=== PATIENT | male | born 1960 | race American Indian/Alaskan Native ===

== ENCOUNTER 2017-07-07 08:40 | Emergency (ER) | payer OTHER ==
[2017-07-07 08:58] VITALS: BP 140/85
[2017-07-07] MEDS ORDERED: TRIPLE ANTIBIOTIC TP ONE (09:17)
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
[2017-07-07] MEDS ORDERED: TORADOL IM ONE (09:23)
== END 2017-07-07 09:52 | disposition home or self-care (01) ==
LOC: ED 08:40
DX: S16.1XXA Strain of muscle, fascia and tendon at neck level, initial encounter (principal); S39.012A Strain of muscle, fascia and tendon of lower back, initial encounter; S60.512A Abrasion of left hand, initial encounter; V49.49XA Driver injured in collision with other motor vehicles in traffic accident, initial encounter; Y93.9 Activity, unspecified; Y92.9 Unspecified place or not applicable; Y99.9 Unspecified external cause status
CPT/HCPCS: 96372; 99282; J1885; A6250

== ENCOUNTER 2017-07-07 14:30 | Emergency (ER) | payer OTHER ==
[2017-07-07 15:27] LABS: Basophils % (Auto) 0.2 % (0.0-1.8); Eosinophils % (Auto) 0.2 % (0.0-4.3); Hematocrit 44.3 % (35.5-45.6); Hemoglobin 14.9 gm/dl (11.8-15.2); Mean Corpuscular HGB Conc 34 % (32-34); Mean Corpuscular Hemoglobin 28 pg (28-32); Mean Corpuscular Volume 81 fl (84-94); Platelet Count 195 K/mm3 (140-440); Red Blood Count 5.44 M/mm3 (3.65-5.03); Red Cell Distribution Width 15.6 % (13.2-15.2); White Blood Count 8.3 K/mm3 (4.5-11.0)
[2017-07-07 15:45] LABS: Anion Gap 20 mmol/L; BUN/Creatinine Ratio 9.28; Blood Urea Nitrogen 13 mg/dL (9-20); Calcium 9.5 mg/dL (8.4-10.2); Carbon Dioxide 26 mmol/L (22-30); Chloride 99.8 mmol/L (98-107); Glucose 105 mg/dL (75-100); Potassium 4.5 mmol/L (3.6-5.0); Sodium 141 mmol/L (137-145)
[2017-07-07 18:36] VITALS: BP 139/77
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
== END 2017-07-07 21:00 | disposition home or self-care (01) ==
LOC: ED 14:30
DX: R55 Syncope and collapse (principal); V89.0XXD Person injured in unspecified motor-vehicle accident, nontraffic, subsequent encounter
CPT/HCPCS: 36415; 80048; 84484; 85025; 93005; 93010; 99284